=== PATIENT | male | born 1945 | race Hispanic/Latino ===

== ENCOUNTER 2018-12-31 08:43 | Outpatient (CLI) | payer MEDICARE ==
--- NOTE | 2018-12-31 10:52 | ULT ---
Gallbladder ultrasound: Multiple grayscale images of right upper quadrant obtained according to protocol. INDICATION: Abdominal bloating FINDINGS: Liver: Hepatic steatosis. Gallbladder: Normal Gallbladder wall: Normal. Mckeon's Sign: Negative Common bile duct is normal. Ascites: None IMPRESSION: No acute gallbladder pathology. Hepatic steatosis.
== END 2018-12-31 08:44 | disposition home or self-care (01) ==
LOC: NAV ULT 08:43
PROVIDERS: ATTEND Nurse Practitioner Family
DX: R74.8 Abnormal levels of other serum enzymes (principal); K76.0 Fatty (change of) liver, not elsewhere classified
CPT/HCPCS: 76705

== ENCOUNTER 2023-01-01 14:49 | Outpatient (CLI) | payer MEDICARE | END 2023-01-01 14:50 | disposition home or self-care (01) | LOC: NAV RAD 14:49 | PROVIDERS: ATTEND Family Medicine | DX: M10.9 Gout, unspecified (principal); M19.071 Primary osteoarthritis, right ankle and foot ==